=== PATIENT | male | born 1980 | race Caucasian/White ===

== ENCOUNTER 2019-01-31 15:00 | Outpatient (CLI) | payer BC ==
[~2019-01-31] VITALS: Ht 177.8 cm; Wt 88.5 kg
[2019-01-31] MEDS ORDERED: LOSA100T57 PO (15:48)
== END 2019-01-31 15:45 | disposition home or self-care (01) ==
LOC: PREOP 15:00
PROVIDERS: ATTEND Surgery
DX: Z01.818 Encounter for other preprocedural examination (principal)

== ENCOUNTER 2019-02-06 08:25 | Day surgery (SDC) | payer BC ==
[~2019-02-06] VITALS: Ht 177.8 cm; Wt 88.5 kg
[~2019-02-06 08:25] MED LIST: LOSA100T57 PO
[2019-02-06] MEDS ORDERED: LACTATED RINGERS 1,000 ML IV STA (08:33)
[2019-02-06] MEDS ORDERED: LACTATED RINGERS 1,000 ML IV ONE (08:35)
[2019-02-06 08:49] VITALS: BP 149/98
[2019-02-06] MEDS ORDERED: MIDAZOLAM 2 MG/2 ML (VERSED) VIAL ONE (08:49)
[2019-02-06] MEDS ORDERED: PROPOFOL INJECTION 50 ML IV ONE ×2 (08:49→09:41)
--- NOTE | 2019-02-06 08:51 | Progress Note-Pre Operative ---
Pre-Operative Progress Note H&P Reviewed The H&P was reviewed, patient examined and no changes noted. Date Seen by Provider: Feb 06, 2019 Time Seen by Provider: 08:50 Date H&P Reviewed: Feb 06, 2019 Time H&P Reviewed: 08:50 Pre-Operative Diagnosis: family history colon cancer LYNNE WEST DO Feb 06, 2019 08:51
[2019-02-06] MEDS ORDERED: GLYCOPYRROLATE 0.2 MG/ML (ROBINUL) 2 ML VIAL ONE (08:57)
--- OUTSIDE RECORDS SUMMARY | 2019-02-06 09:10 | XMS REPORT | Continuity of Care Document ---
Author Author [facility] Organization [facility] Address Unknown Phone Unavailable Allergies There is no data. Medications There is no data. Problems There is no data. Procedures Code Description Performed By Performed On XRCXR XR CHEST 2 VIEWS 09/26/2015 Results There is no data. Encounters ACCT No. Visit Date/Time Discharge Status Pt. Type Provider Facility Loc./Unit Complaint [id number] 09/26/2015 07:40:29 09/26/2015 23:59:00 DIS Outpatient RAHUL FLANAGAN [facility] [id number] 10/27/2017 08:17:09 Document Registration
[2019-02-06] MEDS ORDERED: proPOfol 200 MG/20 ML (DIPRIVAN) VIAL IV ONE (09:34)
--- NOTE | 2019-02-06 10:08 | Progress Note-Post Operative ---
Post-Operative Progess Note Surgeon (s)/Crew Trainer (s) Surgeon LYNNE WEST DO Crew Trainer: na Pre-Operative Diagnosis family history colon cancer Post-Operative Diagnosis normal colon Procedure & Operative Findings Date of Procedure 02/06/19 Procedure Performed/Findings colonoscopy Anesthesia Type per [facility] Estimated Blood Loss Estimated blood loss (mL): none Specimens/Packing Specimens Removed none LYNNE WEST DO Feb 06, 2019 10:08
--- NOTE | 2019-02-06 10:10 | Discharge Inst-Simple/Standard ---
Discharge Inst-Standard Patient Instructions/Follow Up Plan of Care/Instructions/FU: Repeat colonoscopy in 5 year any issues before then be seen at that time. Activity as Tolerated: Yes Discharge Diet: Regular Diet LYNNE WEST DO Feb 06, 2019 10:10
[2019-02-06 10:25] VITALS: BP 133/91
--- NOTE | 2019-02-06 10:45 | Anesthesia-General Post-Op ---
MAC Patient Condition Mental Status/LOC: Same as Preop Cardiovascular: Satisfactory Nausea/Vomiting: Absent Respiratory: Satisfactory Pain: Controlled Complications: Absent Post Op Complications Complications None Follow Up Care/Instructions Patient Instructions None needed. Anesthesiology Discharge Order Discharge Order Patient is doing well, no complaints, stable vital signs, no apparent adverse anesthesia problems. No complications reported per nursing. MACO KELLER CRNA Feb 06, 2019 10:45
[2019-02-06 10:55] VITALS: BP 139/91
--- NOTE | 2019-02-06 14:52 | OPERATIVE REPORT ---
DATE OF SERVICE: 02/06/2019 PREOPERATIVE DIAGNOSIS: Family history of colon cancer. POSTOPERATIVE DIAGNOSIS: Normal colon. PROCEDURE: Colonoscopy. SURGEON: Lynne Muhammad DO ANESTHESIA: Per MDA. ESTIMATED BLOOD LOSS: None. COMPLICATIONS: None. INDICATIONS: The patient is a 38-year-old male with family history of colon cancer. He understands risks and benefits of procedure and wished to proceed with procedure. Consent was signed in the chart. DESCRIPTION OF PROCEDURE: The patient was taken to endoscopy suite, placed in left lower recumbent position. Timeout was performed. Digital rectal exam was performed. There were no palpable polyps, masses or ulcerations. Scope was inserted in the rectum and advanced all the way to the cecum with minimal difficulty. Prep was adequate. Scope was then slowly retracted back. There were no polyps, masses or ulcerations in the cecum, ascending, transverse, descending and sigmoid colon. Once in the rectum, scope was retroflexed noting no other pathology. Scope was returned to its normal position, slowly withdrawn until completely removed. The patient tolerated procedure well without any complications and taken to recovery room in stable condition. RECOMMENDATIONS: The patient will need repeat colonoscopy in 5 years. Any issues for that be seen at that time. Job ID: [id number] DocumentID: [id number] Dictated Date: 02/06/2019 10:13:00 Security Team Lead Date: 02/06/2019 14:51:07 Dictated By: LYNNE MUHAMMAD DO
== END 2019-02-06 10:55 | disposition home or self-care (01) ==
LOC: ENDO 08:25
PROVIDERS: ATTEND Surgery
DX: Z12.11 Encounter for screening for malignant neoplasm of colon (principal); Z80.0 Family history of malignant neoplasm of digestive organs; I10 Essential (primary) hypertension; Z79.899 Other long term (current) drug therapy

== ENCOUNTER 2020-05-03 10:00 | Emergency (ER) | payer BC ==
[~2020-05-03] VITALS: Ht 177 cm; Wt 95.0 kg
--- OUTSIDE RECORDS SUMMARY | 2020-05-03 10:06 | XMS REPORT | Continuity of Care Document ---
Author Organization Unknown Address Unknown Phone Unavailable Allergies Active Description Code Type Severity Reaction Onset Reported/Identified Relationship to Patient Clinical Status Yes No Known Drug Allergies [id number] Drug Allergy Unknown N/A 01/31/2019 Medications There is no data. Problems Date Dx Coded Attending Type Code Diagnosis Diagnosed By 01/31/2019 JERED WEST DO Ot Z01.818 ENCOUNTER FOR OTHER PREPROCEDURAL EXAMIN 01/31/2019 JERED WEST DO Ot Z01.818 ENCOUNTER FOR OTHER PREPROCEDURAL EXAMIN 01/31/2019 JERED WEST DO Ot Z01.818 ENCOUNTER FOR OTHER PREPROCEDURAL EXAMIN 01/31/2019 JERED WEST DO Ot Z01.818 ENCOUNTER FOR OTHER PREPROCEDURAL EXAMIN 01/31/2019 JERED WEST DO Ot Z01.818 ENCOUNTER FOR OTHER PREPROCEDURAL EXAMIN 02/06/2019 JERED WEST DO Ot Z01.818 ENCOUNTER FOR OTHER PREPROCEDURAL EXAMIN 02/06/2019 JERED WEST DO Ot I10 ESSENTIAL (PRIMARY) HYPERTENSION 02/06/2019 JERED WEST DO Ot Z12. 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 0 FAMILY HISTORY OF MALIGNANT NEOPLASM OF 02/07/2019 JERED WEST DO Ot I10 ESSENTIAL (PRIMARY) HYPERTENSION 02/07/2019 JERED WEST DO Ot Z12. 11 ENCOUNTER FOR SCREENING FOR MALIGNANT NE 02/07/2019 JERED WEST DO Ot Z79.899 OTHER [facility] (CURRENT) DRUG THERAPY 02/07/2019 JERED WEST DO Ot Z80. 0 FAMILY HISTORY OF MALIGNANT NEOPLASM OF 01/29/2020 W I10 Essent ial (primary) hypertension Jennifer Yu 01/29/2020 W I10 Essent ial (primary) hypertension GigiJayie Procedures Code Description Performed By Per formed On XRCXR XR C HEST 2 VIEWS 09/26/2015 Results Radiology Report from [id number] on 08:26:36 EXAM: XR CHEST 2 VIEWSEXAM DATE: 017INDICATION: annual physicalTECHNIQUE: PA and lateral viewsCOMPARISON: September 26, 2015FINDINGS: The heart size is normal.The great vessels appear unremarkable.There is no hilar or mediastinal mass.The lungs are clear.There is no pleural effusion or pneumothorax.Postsurgical changes are noted in the left shoulder.IMPRESSION: No acute cardiopulmonary process.Finalized by Jered Macias on 10/27/2017 09:24[facility] Encounters ACCT No. Visit Date/Time Discharge Status Pt. Type Provider Facility Loc./Unit Complaint [id number] 01/25/2020 14:40:41 01/25/2020 23:59:[address] [facility] Outpatient [id number] 09/26/2015 07:40:29 09/26/2015 23: 59:00 DIS Outpatient SHELL [facility] [id number] 10/27/2017 08:17:09 Document Registration [id number] 02/06/2019 08:25:00 019 10:55:00 DIS Outpatient JERED WEST DO [facility] ENDO SCREENING/FAMILY HX COL ON CANCER [id number] 01/31/2019 15:00:00 019 15:45:00 DIS Outpatient JERED WEST DO [facility] PREOP COLONOSCOPY
--- NOTE | 2020-05-03 10:15 | NUR ---
DENIES NEEDS FOR PAIN MEDS AT THIS TIME.
--- NOTE | 2020-05-03 11:00 | Diagnostic Imaging Report ---
PROCEDURE: CT head and maxillofacial without contrast. TECHNIQUE: Multiple contiguous axial images were obtained through the head and facial bones without the use of intravenous contrast. Auto Exposure Controls were utilized during the CT exam to meet ALARA standards for radiation dose reduction. INDICATION: Head and face trauma, sports injury. COMPARISON: None CT HEAD: Ventricles normal in size, shape and position. There is no midline shift or mass effect. There is no hemorrhage or evidence of acute ischemia. The bony calvarium is normal. No extra-axial fluid collection is seen. The mastoid air cells are clear. IMPRESSION: Negative CT head. CT face: Soft tissue swelling is seen overlying the right orbit. Both globes appear intact. No retrobulbar inflammation or hemorrhage is seen. The nasal septum is midline. No osseous fractures are present. The paranasal sinuses are clear. The mandible and TMJ intact. IMPRESSION: Soft tissue swelling overlying the right orbit. No underlying fracture identified. Dictated by: Dictated on workstation # [id number]
--- NOTE | 2020-05-03 11:09 | ED Head Injury ---
General Chief Complaint: Head/Cervical Problems Stated Complaint: R EYE INJ / PAIN Nursing Triage Note: ARRIVED VIA AMB TO ROOM 07. STATES HE WAS HIT ON THE RIGHT EYE BY A BASEBALL WHILE AT PRACTICE. DENIES LOC. SENT OVER FROM DR MORTON OFFICE FOR A CT. DR CARPENTER NOTIFIED OF PT'S ARRIVAL Source: patient, family (sister (Dr. Silveira)) Exam Limitations: no limitations (LIZBETH GARCIA MED STUDENT) History of Present Illness Date Seen by Provider: May 03, 2020 Time Seen by Provider: 10:35 Initial Comments Mr. Guaman presents to the emergency department after getting hit in the right eye with a baseball during batting practice. He denies LOC, headache, pain with eye movement, or vision changes. He admits to some nausea and dizziness. There is some swelling noted over the right superior orbit. Dr. Silveira OD is the patients sister and called discussing the case prior to arrival. (LIZBETH GARCIA MED STUDENT) Allergies and Home Medications Allergies Coded Allergies: No Known Drug Allergies (Unverified , 01/31/19) Home Medications Losartan Potassium 100 Mg Tablet, 100 MG PO DAILY, (Reported) Patient Home Medication List Home Medication List Reviewed: Yes (LIZBETH GARCIA MED STUDENT) Review of Systems Review of Systems Constitutional: dizziness Eyes: See HPI Ears, Nose, Mouth, Throat: no symptoms reported Respiratory: no symptoms reported Cardiovascular: no symptoms reported Gastrointestinal: nausea; No vomiting Genitourinary: no symptoms reported Musculoskeletal: no symptoms reported Skin: no symptoms reported Psychiatric/Neurological: No Symptoms Reported (LIZBETH GARCIA MED STUDENT) Past Ufqqhio-Jzhomm-Oaavgh Hx Patient Social History Alcohol Use: Occasionally Uses Recreational Drug Use: No Smoking Status: Never a Smoker 2nd Hand Smoke Exposure: No Recent Foreign Travel: No Contact w/Someone Who Travel: No Recent Infectious Disease Expo: No Recent Hopitalizations: No (LIZBETH GARCIA MED STUDENT) Immunizations Up To Date Tetanus Booster (TDap): Unknown Date of Influenza Vaccine: Aug 14, 2018 (LIZBETH GARCIA MED STUDENT) Seasonal Allergies Seasonal Allergies: No (LIZBETH GARCIA MED STUDENT) Past Medical History Surgeries: Yes (SHOULDER X3) Respiratory: No Cardiac: Yes Hypertension Neurological: No Sexually Transmitted Disease: No HIV/AIDS: No Genitourinary: No Gastrointestinal: No Musculoskeletal: No Endocrine: No HEENT: No (GLASSES/CONTACTS) Loss of Vision: Bilateral Hearing Impairment: Denies Cancer: No Psychosocial: No Integumentary: No Blood Disorders: No Adverse Reaction/Blood Tranf: No (N/A) (LIZBETH GARCIA MED STUDENT) Family Medical History Colon cancer Physical Exam Vital Signs Vital Signs - First Documented 05/03/20 10:00 Temp 36.3 Pulse 61 Resp 16 B/P (MAP) 136/96 (109) Pulse Ox 98 O2 Delivery Room Air (CARA CARPENTER MD) Vital Signs Capillary Refill : Less Than 3 Seconds (LIZBETH GARCIA MED STUDENT) Height, Weight, BMI Height: 5'10.00" Weight: 195lbs. 0.0oz. 88.082158kb; 30.00 BMI Method: (LIZBETH GARCIA MED STUDENT) Progress/Results/Core Measures Results/Orders My Orders Orders - CARA CARPENTER MD Ct Head/Maxillofacial Wo (05/03/20 10:27) (CARA CARPENTER MD) Vital Signs/I&O 05/03/20 10:00 Temp 36.3 Pulse 61 Resp 16 B/P (MAP) 136/96 (109) Pulse Ox 98 O2 Delivery Room Air (CARA CARPENTER MD) Blood Pressure Mean: 109 Departure Impression Primary Impression: Contusion of face Qualified Codes: S00.83XA - Contusion of other part of head, initial encounter Additional Impressions: Hyphema, right eye Concussion Qualified Codes: S06.0X0A - Concussion without loss of consciousness, initial encounter Disposition: 01 HOME, SELF-CARE Condition: Stable Departure-Patient Inst. Decision time for Depature: 11:30 (CARA CARPENTER MD) Referrals: ROBERT EDUARDO MD (PCP/Family) Primary Care Physician Patient Instructions: Concussion in Adults, Hyphema Add. Discharge Instructions: Drink plenty of clear liquids to stay well-hydrated. Observe cognitive and physical rest for the next couple of days while you recover from concussion. Unless otherwise instructed by your eye doctor, you may take ibuprofen up to 600 mg every 6 hours as needed and/or Tylenol (acetaminophen) up to 1000 mg every 6 hours as needed for pain. You may apply ice in 20 minute intervals to affected areas. Keep your head upright at least at a 45 angle until otherwise instructed by your b2b sales professional. Avoid any activities that would predispose you to further head injury for at least 7 days after concussion symptoms resolve. If any activity causes increasing concussion symptoms such as headache, nausea, confusion, irritability, vision changes, sleep disturbance, or other issues please stop that activity and at rest. Return to care if you have worsening of symptoms that does not resolve with rest. All discharge instructions reviewed with patient and/or family. Voiced understanding. LIZBETH GARCIA,MED STUDENT May 03, 2020 11:09 CARA CARPENTER MD May 03, 2020 11:33
[2020-05-03 11:40] VITALS: BP 142/95
== END 2020-05-03 11:40 | disposition home or self-care (01) ==
LOC: EDUNIT# 10:00 → ER 10:02
DX: S06.0X0A Concussion without loss of consciousness, initial encounter (principal); S05.11XA Contusion of eyeball and orbital tissues, right eye, initial encounter; I10 Essential (primary) hypertension; Z80.0 Family history of malignant neoplasm of digestive organs; W21.03XA Struck by baseball, initial encounter; Y93.64 Activity, baseball
CPT/HCPCS: 70450; 70486